=== PATIENT | male | born 2000 | race Caucasian/White ===

== ENCOUNTER 2024-03-22 13:40 | Emergency (ER) | payer OTHER ==
[~2024-03-22] VITALS: Ht 180.3 cm; Wt 75.1 kg
[2024-03-22 14:27] LABS: BASO % 0.5 % (0.0-1.0); EOS # 0.1 10^3/uL (0.0-0.5); EOS % 1.2 % (0.0-3.0); HEMATOCRIT 48.9 % (42.0-52.0); HEMOGLOBIN 16.3 g/dl (13.5-17.5); LYMPH # 1.9 10^3/uL (1.5-5.0); LYMPH % 29.3 % (24.0-44.0); MEAN CORPUSCULAR HEMOGLOBIN 30.6 pg (27.0-33.0); MEAN CORPUSCULAR HGB CONC 33.3 g/dl (32.0-36.5); MEAN CORPUSCULAR VOLUME 91.7 fl (80.0-96.0); MONO # 0.4 10^3/uL (0.0-0.8); MONO % 5.6 % (2.0-8.0); NEUTROPHILS # 4.1 10^3/uL (1.5-8.5); NEUTROPHILS % 62.9 % (36.0-66.0); PLATELET COUNT, AUTOMATED 237 10^3/uL (150-450); RED BLOOD COUNT 5.33 10^6/uL (4.30-6.10); WHITE BLOOD COUNT 6.6 10^3/uL (4.0-10.0)
[2024-03-22] MEDS: NS 1,000 ML IV ONE (14:42)
[2024-03-22 14:57] LABS: AMPHETAMINES LEVEL URINE NEGATIVE (NEGATIVE); BARBITURATES URINE NEGATIVE (NEGATIVE); BENZODIAZEPINES URINE NEGATIVE (NEGATIVE); CANNABINOIDS URINE NEGATIVE (NEGATIVE); COCAINE METABOLITE URINE NEGATIVE (NEGATIVE); METHADONE URINE NEGATIVE (NEGATIVE); OPIATES URINE NEGATIVE (NEGATIVE); PHENCYCLIDINE URINE NEGATIVE (NEGATIVE); SALICYLATE LEVEL < 3.0 MG/DL (<30)
[2024-03-22 14:59] LABS: THYROID STIMULATING HORMONE 0.242 uIU/ML (0.55-4.78)
[2024-03-22 15:06] LABS: OSMOLALITY SERUM 395 MOSM/KG (275-295)
[2024-03-22 15:21] LABS: ALBUMIN 3.9 G/DL (3.2-5.2); ALKALINE PHOSPHATASE 82 U/L (46-116); ALT/SGPT 21 U/L (7.0-40); AST/SGOT 41 U/L (<34); BILIRUBIN,DIRECT 0.1 MG/DL (<0.4); BILIRUBIN,TOTAL 0.5 MG/DL (0.3-1.2); BLOOD UREA NITROGEN 7 MG/DL (9-23); CALCIUM LEVEL 8.1 MG/DL (8.5-10.1); CARBON DIOXIDE LEVEL 28 MMOL/L (20-31); CHLORIDE LEVEL 107 MMOL/L (98-107); CPK CREATINE PHOSPHOKINASE 125 U/L (46-171); CREATININE FOR GFR 0.83 MG/DL (0.70-1.30); ETHYL ALCOHOL (ETHANOL) 0.388 % (0.000-0.010); GLOMERULAR FILTRATION RATE > 60.0 (>60); GLUCOSE, FASTING 133 MG/DL (60-100); POTASSIUM SERUM 5.3 MMOL/L (3.5-5.1); SODIUM LEVEL 142 MMOL/L (136-145); TOTAL PROTEIN 7.1 G/DL (5.7-8.2)
[2024-03-22 16:58] VITALS: BP 138/84; TEMP 97.6; O2SAT 98
== END 2024-03-22 17:01 | disposition home or self-care (01) ==
LOC: M ED 13:40
DX: F10.120 Alcohol abuse with intoxication, uncomplicated (principal); R00.0 Tachycardia, unspecified; Z88.0 Allergy status to penicillin

== ENCOUNTER 2025-06-14 13:51 | Observation (INO) | payer OTHER ==
[~2025-06-14] VITALS: Ht 180.3 cm; Wt 87.2 kg
[2025-06-14 16:31] LABS: BASO # 0.1 10^3/uL (0.0-0.2); BASO % 0.5 % (0.0-1.0); EOS # 0.1 10^3/uL (0.0-0.5); EOS % 0.5 % (0.0-3.0); LYMPH # 1.4 10^3/uL (1.5-5.0); LYMPH % 13.6 % (24.0-44.0); MONO # 0.6 10^3/uL (0.0-0.8); MONO % 5.7 % (2.0-8.0); NEUTROPHILS # 8.3 10^3/uL (1.5-8.5); NEUTROPHILS % 79.5 % (36.0-66.0); PLATELET COUNT, AUTOMATED 236 10^3/uL (150-450)
[2025-06-14 16:49] LABS: ALT/SGPT 40 U/L (7.0-40); AST/SGOT 47 U/L (<34); CALCIUM LEVEL 9.8 MG/DL (8.5-10.1); CARBON DIOXIDE LEVEL 26 MMOL/L (20-31); CHLORIDE LEVEL 97 MMOL/L (98-107); CREATININE FOR GFR 0.81 MG/DL (0.70-1.30); GLOMERULAR FILTRATION RATE > 90.0 (>60); POTASSIUM SERUM 4.3 MMOL/L (3.5-5.1); SODIUM LEVEL 137 MMOL/L (136-145)
[2025-06-14 17:09] LABS: INR 1.02
[2025-06-14 20:26] LABS: ETHYL ALCOHOL (ETHANOL) 0.019 % (0.000-0.010)
[2025-06-14] MEDS: THIAMINE 100 MG TAB PO SCH (20:37)
[2025-06-14] MEDS: FOLIC ACID 1 MG TAB PO SCH (20:38)
[2025-06-14] MEDS: MULTIVITAMINS/MINERALS THERAP 1 TAB PO SCH (20:38)
[2025-06-14] MEDS: NS (Normal Saline) 0.9% 1,000 ML IV ONE (21:57)
[2025-06-14] MEDS ORDERED: HOME MED LIST COMPLETE! XX SCH (22:10)
[2025-06-15 00:24] VITALS: BP 139/87; TEMP 97.9; O2SAT 97
[2025-06-15] MEDS: traZODone 25MG PER 1/2 TABLET PO PRN (00:59)
[2025-06-15 01:33] LABS: ALT/SGPT 35 U/L (7.0-40); AST/SGOT 47 U/L (<34); CALCIUM LEVEL 9.1 MG/DL (8.5-10.1); CARBON DIOXIDE LEVEL 27 MMOL/L (20-31); CHLORIDE LEVEL 100 MMOL/L (98-107); CREATININE FOR GFR 0.84 MG/DL (0.70-1.30); GLOMERULAR FILTRATION RATE > 90.0 (>60); POTASSIUM SERUM 3.8 MMOL/L (3.5-5.1); SODIUM LEVEL 138 MMOL/L (136-145)
[2025-06-15 03:24] VITALS: BP 127/70; TEMP 97.7; O2SAT 98
[2025-06-15 06:03] LABS: PLATELET COUNT, AUTOMATED 186 10^3/uL (150-450)
[2025-06-15 07:49] VITALS: BP 147/88; TEMP 97.2; O2SAT 100
[2025-06-15 08:09] LABS: PLATELET COUNT, AUTOMATED 161 10^3/uL (150-450)
[2025-06-15] MEDS ORDERED: ONDANSETRON 4MG/2ML VIAL IV SCH (10:00)
[2025-06-15] MEDS ORDERED: ONDANSETRON 4MG/2ML VIAL IV PRN (10:10)
[2025-06-15] MEDS: MULTIVITAMINS/MINERALS THERAP 1 TAB PO SCH (13:06)
[2025-06-15] MEDS: THIAMINE 200MG 2ML VIAL IV ONE (13:06)
[2025-06-15] MEDS: FOLIC ACID 1 MG TAB PO SCH (13:06)
[2025-06-15 15:23] LABS: PLATELET COUNT, AUTOMATED 166 10^3/uL (150-450)
[2025-06-15 15:54] LABS: ALT/SGPT 40 U/L (7.0-40); AST/SGOT 46 U/L (<34); CALCIUM LEVEL 9.5 MG/DL (8.5-10.1); CARBON DIOXIDE LEVEL 27 MMOL/L (20-31); CHLORIDE LEVEL 101 MMOL/L (98-107); CREATININE FOR GFR 0.88 MG/DL (0.70-1.30); GLOMERULAR FILTRATION RATE > 90.0 (>60); POTASSIUM SERUM 4.0 MMOL/L (3.5-5.1); SODIUM LEVEL 139 MMOL/L (136-145)
[2025-06-15 16:28] VITALS: BP 156/89; TEMP 98.2; O2SAT 98
[2025-06-15] MEDS: LR 1,000 ML IV SCH (17:09)
[2025-06-15 19:45] VITALS: BP 149/95; TEMP 97.7; O2SAT 98
[2025-06-16 03:05] VITALS: BP 124/66; TEMP 97.3; O2SAT 97
[2025-06-16 05:25] LABS: ALT/SGPT 34 U/L (7.0-40); AST/SGOT 36 U/L (<34); CALCIUM LEVEL 9.4 MG/DL (8.5-10.1); CARBON DIOXIDE LEVEL 26 MMOL/L (20-31); CHLORIDE LEVEL 103 MMOL/L (98-107); CREATININE FOR GFR 0.91 MG/DL (0.70-1.30); GLOMERULAR FILTRATION RATE > 90.0 (>60); POTASSIUM SERUM 4.0 MMOL/L (3.5-5.1); SODIUM LEVEL 140 MMOL/L (136-145)
[2025-06-16 07:34] VITALS: BP 135/85; TEMP 98.3; O2SAT 99
[2025-06-16] MEDS: THIAMINE 100 MG TAB PO SCH (08:11)
[2025-06-16 11:38] VITALS: BP 149/82; TEMP 98.5; O2SAT 98
[2025-06-16 16:21] VITALS: BP 190/62
== END 2025-06-16 13:56 | disposition home or self-care (01) ==
LOC: M ED 13:51 → M ED INP 13:52 → M PCU 06-15 00:10
PROVIDERS: ADMIT Student in an Organized Health Care Education/Training Program; ATTEND Student in an Organized Health Care Education/Training Program
DX: F10.239 Alcohol dependence with withdrawal, unspecified (principal); K29.21 Alcoholic gastritis with bleeding; F41.9 Anxiety disorder, unspecified
CPT/HCPCS: 36415; 71046; 76705; 80048; 80053; 80076; 80143; 82077; 82248; 83690; 85025; 85027; 85384; 85610; 85730; 86850; 86900; 86901; 93005; 93041; 96361; 96374; 96375; 99285; J3411